=== PATIENT | male | born 1970 | race Caucasian/White ===

== ENCOUNTER → 2018-03-11 | Outpatient (CLI) | payer OTHER ==
[~2018-03-11] MED LIST: HYDR-309 PO; NAPR-1023 PO; SERT50TA PO; TRAM50TA4 PO
== END | disposition home or self-care (01) ==
LOC: RAH 12:43
PROVIDERS: ATTEND Nurse Practitioner Family
DX: M25.571 Pain in right ankle and joints of right foot (principal); E78.5 Hyperlipidemia, unspecified; F43.10 Post-traumatic stress disorder, unspecified
CPT/HCPCS: 73721

== ENCOUNTER 2018-04-13 06:47 | Observation (INO) | payer OTHER ==
[2018-04-12 12:51] VITALS: BP 118/70
[2018-04-12 12:57] LABS: BASOPHILS % (AUTO) 0.7 % (0.0-5.0); EOSINOPHILS % (AUTO) 2.9 % (0.0-8.0); HEMATOCRIT 41.7 % (42-54); LYMPHOCYTES % (AUTO) 28.1 % (21.0-51.0); MEAN CORPUSCULAR HEMOGLOBIN 30.9 pg (27.0-33.0); MEAN CORPUSCULAR HGB CONC 34.8 g/dL (32.0-36.0); MEAN CORPUSCULAR VOLUME 88.7 fL (79-99); MONOCYTES % (AUTO) 7.4 % (3.0-13.0); NEUTROPHILS % (AUTO) 60.9 % (40.0-77.0); NUCLEATED RED BLOOD CELLS 0.1 % (0.0-0.19); PLATELET COUNT (AUTO) 242 K/uL (130-400); RED CELL DISTRIBUTION WIDTH 13.2 % (11.0-15.5)
[2018-04-12 13:10] LABS: CREATININE 0.9 mg/dL (0.5-1.5); POTASSIUM 4.1 mmol/L (3.5-5.1)
[~2018-04-13] VITALS: Ht 182.9 cm; Wt 99.6 kg
[2018-04-13] VITALS (20 sets, daily range): BP systolic 101–132; BP diastolic 63–82
[~2018-04-13 06:47] MED LIST changes: -HYDR-309 PO
[2018-04-13] MEDS ORDERED: LACTATED RINGERS 1000ML 1,000 ML IV ONE (07:27)
[2018-04-13] MEDS ORDERED: CEFAZOLIN SODIUM 1 GM VIAL ONE ×2 (09:11→10:21)
[2018-04-13] MEDS: CEFAZOLIN SODIUM 1 GM VIAL ONE ×2 (09:12→10:01)
[2018-04-13] MEDS ORDERED: FENTANYL CITRATE PF 50 MCG/1 ML 5ML AMP IV ONE (09:36)
[2018-04-13] MEDS ORDERED: PROPOFOL 10 MG/ML 20ML VIAL IV ONE ×2 (09:36→12:28)
[2018-04-13] MEDS ORDERED: MIDAZOLAM HCL 1 MG/ML 2ML VIAL ONE (09:37)
[2018-04-13] MEDS ORDERED: ROCURONIUM BROMIDE 10MG/1ML 5ML VL ONE ×3 (09:37→10:03)
[2018-04-13] MEDS ORDERED: ONDANSETRON HCL 4 MG/2 ML VIAL ONE (10:00)
[2018-04-13] MEDS ORDERED: ONDANSETRON HCL MDV 20ML 2 MG/ML VIAL ONE (10:03)
[2018-04-13] MEDS ORDERED: GLYCOPYRROLATE 0.2 MG/ML 5 ML VIAL ONE (10:03)
[2018-04-13] MEDS ORDERED: LIDOCAINE PF 2% 5ML ABBOJECT ONE (10:03)
[2018-04-13] MEDS ORDERED: NEOSTIGMINE METHYLSULFATE 1MG/ML IV ONE (10:03)
[2018-04-13] MEDS ORDERED: ROPIVACAINE 0.5% 5MG/ML 30ML IJ ONE (12:11)
[2018-04-13] MEDS ORDERED: KETOROLAC TROMETHAMINE 15MG/ML IV PRN (12:15)
[2018-04-13] MEDS ORDERED: TRAMADOL HCL 50 MG TABLET PO PRN (12:15)
[2018-04-13] MEDS ORDERED: DiphenhydrAMINE HCL 50 MG/ML VIAL IVP PRN (12:15)
[2018-04-13] MEDS ORDERED: DIPHENHYDRAMINE HCL 25 MG CAPSULE PO PRN (12:15)
[2018-04-13] MEDS ORDERED: TEMAZEPAM 15 MG CAPSULE PO PRN (12:15)
[2018-04-13] MEDS ORDERED: OXYCODONE HCL 5 MG TAB PO PRN (12:15)
[2018-04-13] MEDS ORDERED: CALCIUM CARBONATE 500 MG TABLET PO PRN (12:15)
[2018-04-13] MEDS ORDERED: FERROUS FUMARATE 324 MG TABLET PO PRN (12:15)
[2018-04-13] MEDS ORDERED: PROMETHAZINE HCL 25 MG/ML 1ML AMPULE IM PRN (12:15)
[2018-04-13] MEDS ORDERED: MEPERIDINE-PF 50 MG/ML SYG ONE ×2 (12:46→13:12)
[2018-04-13] MEDS: SODIUM CHLORIDE 0.9% 1000ML 1,000 ML IV SCH (14:34)
[2018-04-13] MEDS: ACETAMINOPHEN EXTRA STRENGTH 500 MG TABLET PO SCH ×2 (14:38→19:33)
[2018-04-13] MEDS: CEFAZOLIN 3GM /D5W 100ML 100 ML IV SCH (17:58)
[2018-04-13] MEDS ORDERED: PREGABALIN 25 MG CAP ONE (19:28)
[2018-04-13] MEDS: NAPROXEN 500 MG TABLET PO SCH (19:32)
[2018-04-13] MEDS: PREGABALIN 25 MG CAP PO SCH (19:32)
[2018-04-13] MEDS: ENOXAPARIN SODIUM 40 MG/0.4 ML SYRINGE SQ SCH (21:00)
[2018-04-14] VITALS: BP 106/59
[2018-04-14] MEDS: CEFAZOLIN 3GM /D5W 100ML 100 ML IV SCH (00:38)
[2018-04-14] MEDS: SODIUM CHLORIDE 0.9% 1000ML 1,000 ML IV SCH ×2 (00:38→08:05)
[2018-04-14 04:00] VITALS: BP 116/78
[2018-04-14] MEDS: ACETAMINOPHEN EXTRA STRENGTH 500 MG TABLET PO SCH ×2 (04:01→14:06)
[2018-04-14] MEDS: OXYCODONE HCL 5 MG TAB PO PRN ×3 (04:06→14:01)
[2018-04-14 05:14] LABS: HEMATOCRIT 37.1 % (42-54); MEAN CORPUSCULAR HEMOGLOBIN 32.4 pg (27.0-33.0); MEAN CORPUSCULAR HGB CONC 36.4 g/dL (32.0-36.0); MEAN CORPUSCULAR VOLUME 88.9 fL (79-99); PLATELET COUNT (AUTO) 184 K/uL (130-400); RED BLOOD CELL COUNT(AUTO) 4.17 MIL/uL (4.50-6.20); RED CELL DISTRIBUTION WIDTH 13.2 % (11.0-15.5); WHITE BLOOD COUNT (AUTO) 7.6 K/uL (4.8-10.8)
[2018-04-14 05:24] LABS: POTASSIUM 4.3 mmol/L (3.5-5.1)
[2018-04-14 08:15] VITALS: BP 112/70
[2018-04-14] MEDS: ENOXAPARIN SODIUM 40 MG/0.4 ML SYRINGE SQ SCH (08:50)
[2018-04-14] MEDS: PREGABALIN 25 MG CAP PO SCH (08:50)
[2018-04-14] MEDS: NAPROXEN 500 MG TABLET PO SCH (08:51)
[2018-04-14] MEDS ORDERED: POLYETHYLENE GLYCOL 3350 17 GM POWD.PACK PO SCH (09:00)
[2018-04-14] MEDS ORDERED: SERTRALINE HCL 50 MG TABLET PO SCH (09:00)
[2018-04-14 11:22] VITALS: BP 122/74
[2018-04-14] MEDS ORDERED: PSYLLIUM SEED 1 EACH PACKET PO SCH (12:00)
[2018-04-14] MEDS ORDERED: HYDR-309 PO (12:19)
[2018-04-14 16:01] VITALS: BP 127/87
[2018-04-15] MEDS ORDERED: BISACODYL 5 MG TABLET.DR PO PRN (12:15)
[2018-04-16] MEDS ORDERED: BISACODYL 10 MG SUPP.RECT RC PRN (12:15)
== END 2018-04-14 17:28 | disposition home or self-care (01) ==
LOC: DAH 06:47 → DAHIP 06:48 → 4AH 13:17
PROVIDERS: ADMIT Orthopaedic Surgery; ATTEND Orthopaedic Surgery
DX: S86.012A Strain of left Achilles tendon, initial encounter (principal); X58.XXXA Exposure to other specified factors, initial encounter; Y93.89 Activity, other specified; Y92.89 Other specified places as the place of occurrence of the external cause; Y99.8 Other external cause status
CPT/HCPCS: 27654; 36415 ×2; 80048 ×2; 85025; 85027; 96365; 96372; 96375; 97039 ×2; 97116 ×3; 97161; A4218; A4649 ×2; A4930 ×2; A6223; C1762; G0378 ×35; G8978; G8979; G8980; G8981; G8982; G8983; J0690 ×4; J1650; J2001; J2175 ×2; J2250; J2405; J2704 ×2; J2710; J2795; J3010; J3490 ×4; J7030 ×3; J7120; Q4051

== ENCOUNTER → 2018-05-05 | Outpatient (CLI) | payer OTHER ==
[~2018-05-05] MED LIST changes: +HYDR-309 PO; -TRAM50TA4 PO
== END | disposition home or self-care (01) ==
LOC: RAH 14:40
PROVIDERS: ATTEND Nurse Practitioner Family
DX: M65.9 Synovitis and tenosynovitis, unspecified (principal); E78.5 Hyperlipidemia, unspecified; F41.1 Generalized anxiety disorder
CPT/HCPCS: 73221